=== PATIENT | female | born 1985 | race American Indian/Alaskan Native ===

== ENCOUNTER 2021-07-20 19:06 | Emergency (ER) | payer SELFPAY ==
[2021-07-20 20:12] VITALS: BP 122/74
[2021-07-20] MEDS ORDERED: ACETAMINOPHEN 325 MG TAB PO ONE (21:28)
[2021-07-20] MEDS ORDERED: CYCLOBENZAPRINE 10 MG TAB PO ONE (21:28)
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
--- NOTE | 2021-07-20 22:37 | Cat Scan Report ---
CT head/brain wo con INDICATION / CLINICAL INFORMATION: [place]., now with head pain. TECHNIQUE: Axial CT imaging of the brain was obtained without contrast. Coronal and sagittal reformatted imaging obtained and reviewed. All CT scans at this location are performed using CT dose reduction for ALAR A by means of automated exposure control. COMPARISON: None available. FINDINGS: No intracranial hemorrhage, mass, or midline shift is present. No extra-axial fluid collection or sug gestion of acute territorial infarction. Ventricular system and basilar cisterns are unremarkable. Visualized paranasal sinuses and mastoid air cells are well aerated and clear. No calvarial fracture noted. IMPRESSION: 1. No acute intracranial abnormality. Signer Name: Carina Schumacher MD Signed: 07/20/2021 10:32 PM Workstation Name: [id number]
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
== END 2021-07-20 23:09 | disposition home or self-care (01) ==
LOC: ED 19:06
DX: S20.219A Contusion of unspecified front wall of thorax, initial encounter (principal); M62.830 Muscle spasm of back; Z88.0 Allergy status to penicillin; V59.9XXA Occupant (driver) (passenger) of pick-up truck or van injured in unspecified traffic accident, initial encounter; Y93.79 Activity, other specified sports and athletics; Y92.89 Other specified places as the place of occurrence of the external cause; Y99.8 Other external cause status
CPT/HCPCS: 70450; 71046; 99284